=== PATIENT | male | born 1945 ===

== ENCOUNTER → 2021-07-18 14:36 | Outpatient (CLI) | payer OTHER, SELFPAY ==
[2021-07-18 14:46] LABS: Microscopic, Urine URINE MICROSCOPIC (MICROSCOPIC)
[2021-07-18 14:54] LABS: Appearance,Urine SL CLOUDY (Clear); Bilirubin,Urine Negative (Negative); Blood, Urine 1+ (Negative); Color,Urine YELLOW (Yellow); Glucose,Urine (UA) Negative (Negative); Ketones,Urine Negative (Negative); Leukocyte Esterase,Urine 2+ (Negative); Nitrate,Urine POSITIVE (Negative); Protein,Urine 3+ (Negative); Specific Gravity, Urine 1.015 (1.005-1.030); Urobilinogen,Urine 0.2 EU/dl (0.2)
[2021-07-18 15:26] LABS: Bacteria,Urine 4+ /lpf; Squamous Epithelial Cell,Urine Occasional #/hpf (0-5)
== END ==
PROVIDERS: Visit Provider Internal Medicine Adolescent Medicine
DX: N39.0 Urinary tract infection, site not specified (principal); R82.90 Unspecified abnormal findings in urine
CPT/HCPCS: 81001; 87086; 87088; 87186

== ENCOUNTER 2023-06-02 13:21 | Outpatient (CLI) | payer OTHER, SELFPAY ==
[2023-06-02 14:18] LABS: Iron 58 ug/dL (49-181)
[2023-06-02 14:28] LABS: Total Iron Binding Capacity 279 ug/dL (261-462)
[2023-06-02 14:54] LABS: Ferritin 161 ng/ml (17.9-464)
[2023-06-02 16:07] LABS: Vitamin B12 325 pg/mL (239-931)
[2023-06-02 17:55] LABS: Basophils % 0.4 % (0.1-2.0); Eosinophils # 0.1 K/mm3 (0.0-0.4); Eosinophils % 1.3 % (0.1-12.0); Hematocrit 35.7 % (42.0-52.0); Hemoglobin 11.4 g/dL (14.1-18.0); Lymphocytes # 1.1 K/mm3 (0.7-4.5); Lymphocytes % 14.1 % (10-50); Mean Corpuscular HGB Conc 31.9 g/dL (31.8-35.4); Mean Corpuscular Hemoglobin 30.1 pg (27.0-31.2); Mean Corpuscular Volume 94.1 fl (80-94); Mean Platelet Volume 8.4 fl (7.4-10.4); Monocytes # 0.4 K/mm3 (0.1-1.0); Monocytes % 4.6 % (1.7-9.3); Neutrophils # 6.4 K/mm3 (1.8-7.8); Neutrophils % 79.6 % (37.0-80.0); Platelet Count 264 K/mm3 (142-424); Red Cell Distribution Width 15.5 % (11.5-17.5)
== END 2023-06-02 23:59 ==
LOC: LAB.DROPOF 13:25
PROVIDERS: PCP Nurse Practitioner Family; Visit Provider Nurse Practitioner Family
DX: I10 Essential (primary) hypertension (principal); D64.9 Anemia, unspecified
CPT/HCPCS: 82607; 82728; 82746; 83540; 83550; 85025